=== PATIENT | female | born 1935 | race Caucasian/White ===

== ENCOUNTER → 2023-12-08 10:04 | Outpatient (CLI) | payer MEDICARE, SELFPAY ==
[2020-05-29 02:00] VITALS: BMI 28.0
[2023-12-08 11:48] LABS: Vitamin D 25 Hydroxy (D3) 34.7 ng/mL (30.0-100.0)
[2023-12-08 12:02] LABS: TSH w/ Reflex to FT4 0.08 uIU/mL (0.47-4.68)
[2023-12-08 12:43] LABS: Free T4, Direct Thyroxine 1.53 ng/dL (0.78-2.19)
== END ==
LOC: LAB 10:06
PROVIDERS: PCP Family Medicine; Referring Provider Family Medicine; Visit Provider Family Medicine
DX: E03.9 Hypothyroidism, unspecified (principal); E55.9 Vitamin D deficiency, unspecified
CPT/HCPCS: 36415; 82306; 84439; 84443

== ENCOUNTER → 2023-12-24 15:41 | Outpatient (CLI) | payer MEDICARE, SELFPAY ==
[2023-12-24 15:33] VITALS: BMI 28.0
[2023-12-24 16:31] LABS: Add Manual Diff / Slide Review NO; Basophils Absolute Auto 300 /uL (0-100); Basophils Percent Auto 3.3 % (0-2); Eosinophils Absolute Auto 400 /uL (0-450); Eosinophils Percent Auto 3.7 % (2-4); Hemoglobin 12.2 g/dL (12.0-16.0); Lymphocytes Absolute Auto 1900 /uL (1100-4500); Lymphocytes Percent Auto 19.6 % (25-40); Mean Corpuscular HGB Conc 33.9 % (30-36); Mean Corpuscular Hemoglobin 32.4 PG (26-34); Mean Corpuscular Volume 95.6 fL (80-100); Monocytes Absolute Auto 800 /uL (0-900); Monocytes Percent Auto 8.1 % (3-14); Neutrophils Absolute Auto 6400 /uL (1500-7000); Neutrophils Percent Auto 65.3 % (50-75); Platelet Count 267 X10^3/uL (150-400); Red Blood Cell Count 3.77 X10^6/uL (4.0-5.2); Red Cell Distribution Width 13.8 % (11.6-14.8); White Blood Cell Count 9.8 X10^3/uL (4.5-11.0)
[2023-12-24 16:57] LABS: HEMOLYSIS < 15 (0-50); Iron 92 ug/dL (37-170)
[2023-12-24 17:07] LABS: BUN Creatinine Ratio 19.6 (6-22); Blood Urea Nitrogen 19 mg/dL (7-17); Calcium 8.7 mg/dL (8.4-10.2); Carbon Dioxide 28 mmol/L (22-32); Chloride 102 mmol/L (98-107); Estimated Glomerular Filt Rate 56 mL/min (>60); Glucose 92 mg/dL (80-110); HEMOLYSIS < 15 (0-50); Potassium 4.3 mmol/L (3.4-5.1); Sodium 133 mmol/L (137-145)
[2023-12-24 17:10] LABS: Percent Iron Saturation 28 % (15-50); Total Iron Binding Capacity 325 ug/dL (265-497); Transferrin 255 mg/dL (206-381)
[2023-12-24 17:37] LABS: Ferritin 32 ng/mL (11-264)
[2023-12-24 17:51] LABS: Vitamin B12 322 pg/mL (239-931)
== END ==
PROVIDERS: PCP Family Medicine; Referring Provider Family Medicine; Visit Provider Family Medicine
DX: I10 Essential (primary) hypertension (principal); R53.83 Other fatigue
CPT/HCPCS: 36415; 80048; 82607; 82728; 83540; 83550; 85025